=== PATIENT | female | born 1940 | race Caucasian/White ===

== ENCOUNTER 2017-04-07 14:54 | Observation (INO) | payer MEDICARE, OTHER ==
[2017-04-07] MEDS ORDERED: Sodium Chloride 0.9% 500 ML IV ONE (14:57)
--- NOTE | 2017-04-07 15:42 | EDM.PDOC ---
[id number] Complaint: AMBULANCE Time Seen by Provider: 04/07/17 14:55 Source of Information: Reports: Patient History Limitations: Reports: No Limitations - History of Present Illness INITIAL COMMENTS - FREE TEXT/NARRATIVE: History of present illness: []Patient was brought in by ambulance for frequent falls in each right shoulder pain. She states she's fallen 4 times in the last few days and complains of right shoulder pain unable to lift her arm. Patient saw her primary care physician who did a shoulder films yesterday and states it was not broken. Patient unable to tolerate pain and is unable to manage at home as she lives alone. Patient's daughter arrived and gave more history stating that patient's in November of this year she was admitted to the hospital in December with subsequent transfer to [facility] for respiratory distress where she was intubated she was then transferred to [facility] and stayed there until March 05. Since then she has been home doing fine until 6 days ago when she became very weak and tired and starting to fall. Patient's daughter states that she has arranged an admission to [facility] however they are not able to accept her until tomorrow. Review of systems: As per history of present illness and below otherwise all systems reviewed and negative. Past medical history: As per history of present illness and as reviewed below otherwise noncontributory. Surgical history: As per history of present illness and as reviewed below otherwise noncontributory. Social history: No reported history of drug or alcohol abuse. Family history: As per history of present illness and as reviewed below otherwise noncontributory. Physical exam: General: Well developed, well nourished in NAD HEENT: Atraumatic, normocephalic, pupils reactive, negative for conjunctival pallor or scleral icterus, mucous membranes dry, throat clear, neck supple, nontender, trachea midline. Lungs: Clear to auscultation, breath sounds equal bilaterally, chest nontender. Heart: S1S2, regular, negative for clicks, rubs, or JVD. Abdomen: Soft, nondistended, nontender. Negative for masses or hepatosplenomegaly. Negative for costovertebral tenderness. Pelvis: Stable nontender. Genitourinary: Ecchymotic area on her buttock and perineal area Rectal: Guaiac positive Extremities: Right shoulder and humerus with tenderness to palpation, she is unable to lift the right arm or move the shoulder in socket. Patient has a small abrasion on the left inner lower leg with surrounding erythema and serous drainage. Neuro: Awake, alert, oriented slow but clear speech. Cranial nerves II through XII unremarkable. Cerebellum unremarkable. Motor and sensory unremarkable throughout. Exam nonfocal. Skin: Multiple ecchymotic lesions throughout her skin on her upper extremities. Diagnostics: []Labs, x-ray Therapeutics: []IV hydration pain meds Impression: []Anemia, frequent falls Plan: []Admit list for further workup Definitive disposition and diagnosis as appropriate pending reevaluation and review of above. Right Shoulder Pain Score (Numeric/FACES): 8 - Related Data Allergies Allergy/AdvReac Type Severity Reaction Status Date / Time Penicillins Allergy Hives Verified 04/07/17 15:02 Home Meds: Home Meds Amiodarone [Cordarone] 200 mg PO BID 04/07/17 [History] Citalopram [Celexa] 10 mg PO DAILY 04/07/17 [History] Folic Acid 3 tab PO DAILY 04/07/17 [History] Furosemide 80 mg PO DAILY 04/07/17 [History] Methotrexate 6 tab PO WEEKLY 04/07/17 [History] Metoprolol Tartrate 1 tab PO BID 04/07/17 [History] Pantoprazole [ProTONIX] 40 mg PO BID 04/07/17 [History] Potassium Chloride [K-Tab ER] 1 tab PO BID 04/07/17 [History] Prednisone [IJD: predniSONE] 1 tab PO DAILY 04/07/17 [History] Prednisone [IJP: Prednisone] 1 tab PO DAILY 04/07/17 [History] Past Medical History HEENT History: Reports: None Cardiovascular History: Reports: Afib Other Cardiovascular History: Congestive heart failure Respiratory History: Reports: Pneumonia, Recurrent Gastrointestinal History: Reports: Hepatitis Genitourinary History: Reports: None [employer]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: Musculoskeletal History: Reports: RA Neurological History: Reports: None Psychiatric History: Reports: None Endocrine/Metabolic History: Reports: None Hematologic History: Reports: None Immunologic History: Reports: None Oncologic (Cancer) History: Reports: None Dermatologic History: Reports: None - Infectious Disease History Infectious Disease History: Reports: Chicken Pox, Measles, Mumps - Past Surgical History HEENT Surgical History: Reports: Other (See Below) Other HEENT Surgeries/Procedures: Cornea transplants Cardiovascular Surgical History: Reports: None Female Surgical History: Reports: Hysterectomy Social & Family History - Family History Family Medical History: Noncontributory Cardiac: Reports: Hypertension, Other (See Below) Other Cardiac Family History: Congestive heart failure Respiratory: Reports: None GI: Reports: None : Reports: UTI, Recurrent OBGYN: Reports: Musculoskeletal: Reports: Arthritis Neurological: Reports: None Psychiatric: Reports: Anxiety, Depression Endocrine/Metabolic: Reports: Diabetes, Type I Hematologic: Reports: None Immunologic: Reports: None Dermatologic: Reports: None Oncologic: Reports: None - Tobacco Use Smoking Status *Q: Never Smoker Years of Tobacco use: Used Tobacco, but Quit: Yes Month Tobacco Last Used: 2010 Second Hand Smoke Exposure: No - Caffeine Use Caffeine Use: Reports: Coffee Caffeine Use Comment: 3 cups/day - Alcohol Use Days Per Week of Alcohol Use: 0 - Recreational Drug Use Recreational Drug Use: No Review of Systems - Review of Systems Review Of Systems: See Below (See history of present illness) ED EXAM, GENERAL - Physical Exam Exam: See Below (See history of present illness) Course - Vital Signs Last Recorded V/S: Last Vital Signs Temp 36.3 C 04/07/17 16:10 Pulse 83 04/07/17 16:10 Resp 16 04/07/17 16:10 BP 135/64 04/07/17 16:23 Pulse Ox 99 04/07/17 16:10 - Orders/Labs/Meds Orders: Active Orders 24 hr Category Date Time Status EKG Documentation Completion [RC] STAT Care 04/07/17 14:57 Active Chest 1V Frontal [CR] Stat Exams 04/07/17 15:55 Taken Humerus Rt [CR] Stat Exams 04/07/17 15:55 Taken Saline Lock Insert [OM.PC] Stat Oth 04/07/17 14:57 Ordered Transfuse RBC [Transfuse Red Blood Cells] [COMM] Stat Oth 04/07/17 16:47 Ordered Labs: Laboratory Tests 04/07/17 04/07/17 04/07/17 Range/Units 16:00 16:00 16:00 WBC 2.74 L (4.0-11.0) K/uL RBC 2.69 L (4.30-5.90) M/uL Hgb 8.8 L (12.0-16.0) g/dL Hct 27.9 L (36.0-46.0) % MCV 103.7 H (80.0-98.0) fL MCH 32.7 H (27.0-32.0) pg MCHC 31.5 (31.0-37.0) g/dL RDW Std Deviation 69.1 H (28.0-62.0) fl RDW Coeff of Princess 18 H (11.0-15.0) % Plt Count 79 L (150-400) K/uL MPV 11.00 (7.40-12.00) fL Add Manual Diff YES Neutrophils % (Manual) 84 H (48.0-80.0) % Band Neutrophils % 9 % Lymphocytes % (Manual) 6 L (16.0-40.0) % Monocytes % (Manual) 1 (0.0-15.0) % Nucleated RBC % 0.0 /100WBC Absolute Seg Neuts 2.3 Band Neutrophils # 0.2 Lymphocytes # (Manual) 0.2 Monocytes # (Manual) 0 Nucleated RBCs # 0 K/uL Sodium 136 (136-146) mmol/L Potassium 3.6 (3.5-5.1) mmol/L Chloride 105 (98-110) mmol/L Carbon Dioxide 21 (21-31) mmol/L BUN 21 (6.0-23.0) mg/dL Creatinine 0.8 (0.6-1.5) mg/dL Est Cr Clr Drug Dosing 48.72 mL/min Estimated GFR (MDRD) > 60.0 ml/min Glucose 95 (60-110) mg/dL Calcium 7.0 L (8.8-10.8) mg/dL Total Bilirubin 1.3 (0.1-1.5) mg/dL AST 19 (5-40) IU/L ALT 21 (8-54) IU/L Alkaline Phosphatase 90 (40-150) Creatine Kinase (9-236) IU/L Troponin I 0.23 (0.0-0.29) NG/ML Total Protein 4.3 L (6.0-8.0) g/dL Albumin 2.6 L (3.4-4.8) g/dL Globulin 1.7 L (2.0-3.5) g/dL Albumin/Globulin Ratio 1.5 (1.3-2.8) Urine Color Urine Appearance Urine pH (5.0-8.0) Ur Specific Petty (1.001-1.035) Urine Protein (NEGATIVE) mg/dL Urine Glucose (UA) (NEGATIVE) mg/dL Urine Ketones (NEGATIVE) mg/dL Urine Occult Blood (NEGATIVE) Urine Nitrite (NEGATIVE) Urine Bilirubin (NEGATIVE) Urine Ictotest Urine Urobilinogen (<2.0) EU/dL Ur Leukocyte Esterase (NEGATIVE) Urine RBC (0-2/HPF) Urine WBC (0-5/HPF) Ur Epithelial Cells (NONE-FEW) Amorphous Sediment (NEGATIVE) Urine Bacteria (NEGATIVE) Urine Yeast 04/07/17 04/07/17 Range/Units 16:00 16:22 WBC (4.0-11.0) K/uL RBC (4.30-5.90) M/uL Hgb (12.0-16.0) g/dL Hct (36.0-46.0) % MCV (80.0-98.0) fL MCH (27.0-32.0) pg MCHC (31.0-37.0) g/dL RDW Std Deviation (28.0-62.0) fl RDW Coeff of Princess (11.0-15.0) % Plt Count (150-400) K/uL MPV (7.40-12.00) fL Add Manual Diff Neutrophils % (Manual) (48.0-80.0) % Band Neutrophils % % Lymphocytes % (Manual) (16.0-40.0) % Monocytes % (Manual) (0.0-15.0) % Nucleated RBC % /100WBC Absolute Seg Neuts Band Neutrophils # Lymphocytes # (Manual) Monocytes # (Manual) Nucleated RBCs # K/uL Sodium (136-146) mmol/L Potassium (3.5-5.1) mmol/L Chloride (98-110) mmol/L Carbon Dioxide (21-31) mmol/L BUN (6.0-23.0) mg/dL Creatinine (0.6-1.5) mg/dL Est Cr Clr Drug Dosing mL/min Estimated GFR (MDRD) ml/min Glucose (60-110) mg/dL Calcium (8.8-10.8) mg/dL Total Bilirubin (0.1-1.5) mg/dL AST (5-40) IU/L ALT (8-54) IU/L Alkaline Phosphatase (40-150) Creatine Kinase 48 (9-236) IU/L Troponin I (0.0-0.29) NG/ML Total Protein (6.0-8.0) g/dL Albumin (3.4-4.8) g/dL Globulin (2.0-3.5) g/dL Albumin/Globulin Ratio (1.3-2.8) Urine Color YELLOW Urine Appearance SLT CLOUDY Urine pH 5.5 (5.0-8.0) Ur Specific Petty 1.015 (1.001-1.035) Urine Protein 30 (NEGATIVE) mg/dL Urine Glucose (UA) NEGATIVE (NEGATIVE) mg/dL Urine Ketones NEGATIVE (NEGATIVE) mg/dL Urine Occult Blood NEGATIVE (NEGATIVE) Urine Nitrite NEGATIVE (NEGATIVE) Urine Bilirubin SMALL H (NEGATIVE) Urine Ictotest NEGATIVE Urine Urobilinogen 2.0 H (<2.0) EU/dL Ur Leukocyte Esterase NEGATIVE (NEGATIVE) Urine RBC 0-1 (0-2/HPF) Urine WBC 0-2 (0-5/HPF) Ur Epithelial Cells OCCASIONAL (NONE-FEW) Amorphous Sediment LIGHT (NEGATIVE) Urine Bacteria FEW (NEGATIVE) Urine Yeast RARE Meds: Medications Discontinued Medications Generic Name Dose Route Start Last Admin Trade Name Martinezq PRN Reason Stop Dose Admin Sodium Chloride 500 mls @ 999 mls/hr 04/07/17 14:57 04/07/17 15:36 Normal Saline IV 04/07/17 15:27 999 mls/hr .Bolus ONE Administration Morphine Sulfate 2 mg 04/07/17 15:50 04/07/17 15:57 Morphine IVPUSH 04/07/17 15:51 2 mg ONETIME ONE Administration Ondansetron HCl 4 mg 04/07/17 15:50 04/07/17 15:57 Zofran IVPUSH 04/07/17 15:51 4 mg ONETIME ONE Administration Departure - Departure Time of Disposition: 17:19 Disposition: Admitted As Inpatient 66 Condition: fair Clinical Impression: Frequent falls Anemia Qualifiers: Anemia type: unspecified type Qualified Code(s): D64.9 - Anemia, unspecified - Discharge Information Referrals: Raymond Pinon MD [Primary Care Provider] - Forms: ED Department Discharge - My Orders Last 24 Hours: My Active Orders 04/07/17 14:57 EKG Documentation Completion [RC] STAT Saline Lock Insert [OM.PC] Stat 04/07/17 15:55 Chest 1V Frontal [CR] Stat Humerus Rt [CR] Stat 04/07/17 16:47 Transfuse RBC [Transfuse Red Blood Cells] [COMM] Stat - Assessment/Plan Last 24 Hours: My Active Orders 04/07/17 14:57 EKG Documentation Completion [RC] STAT Saline Lock Insert [OM.PC] Stat 04/07/17 15:55 Chest 1V Frontal [CR] Stat Humerus Rt [CR] Stat 04/07/17 16:47 Transfuse RBC [Transfuse Red Blood Cells] [COMM] Stat
[2017-04-07] MEDS ORDERED: Morphine 2 MG/ML Syringe IVPUSH ONE (15:50)
[2017-04-07] MEDS ORDERED: Ondansetron 4 MG/2 ML SDV IVPUSH ONE (15:50)
[2017-04-07 16:42] LABS: CHLORIDE,CL 105 mmol/L (98-110); SODIUM,NA 136 mmol/L (136-146)
[2017-04-07] MEDS ORDERED: Sodium Chloride 0.9% 1,000 ML IV ONE (17:14)
[2017-04-07] MEDS ORDERED: Morphine 2 MG/ML Syringe IVPUSH PRN (18:21)
[2017-04-07] MEDS ORDERED: Acetaminophen 325 MG Tab PO PRN (18:21)
[2017-04-07] MEDS ORDERED: Polyethylene Glycol 3350 Powder 17 GM Packet PO PRN (18:21)
[2017-04-07] MEDS: Sodium Chloride 0.9% 1,000 ML IV SCH (18:30)
--- NOTE | 2017-04-07 18:44 | PCM.HP ---
H&P History of Present Illness - General Date of Service: 04/07/17 Admit Problem/Dx: Admission Diagnosis/Problem Admission Diagnosis/Problem Fall Source of Information: Patient, Family, Old Records History Limitations: Reports: No Limitations - History of Present Illness Initial Comments - Free Text/Narative: Has been increasingly weak and unsteady on her feet. Dizzy at times. Fell on Wednesday without injury. Today, fell in kitchen onto her bottom. Pain in shoulders and coccyx. Also hit head on the way down (bump behind left ear) but that doesn't hurt. No LOC, syncope, CP, SOB, palpitations. Has been increasingly frail past month or so and is on waiting list to go to [place] for a SNF/rehab stay. Denies any bleeding anywhere. Lots of bruising but that's not new. No MCLEOD, focal neuro sxs, vision changes (over baseline). Also has been having epigastric fullness and early satiety. Onset of Symptoms: Reports: Gradual Right Shoulder Pain Score (Numeric/FACES): 8 - Related Data Allergies/Adverse Reactions: Allergies Allergy/AdvReac Type Severity Reaction Status Date / Time Penicillins Allergy Hives Verified 04/07/17 15:02 Home Medications: Home Meds Amiodarone [Cordarone] 200 mg PO BID 04/07/17 [History] Citalopram [Celexa] 10 mg PO DAILY 04/07/17 [History] Pantoprazole [ProTONIX] 40 mg PO BID 04/07/17 [History] Potassium Chloride [K-Tab ER] 1 tab PO BID 04/07/17 [History] RX: Folic Acid 3 tab PO DAILY 04/07/17 [History] RX: Furosemide 80 mg PO DAILY 04/07/17 [History] RX: Methotrexate 6 tab PO WEEKLY 04/07/17 [History] RX: Metoprolol Tartrate 1 tab PO BID 04/07/17 [History] RX: Prednisone [IJD: predniSONE] 1 tab PO DAILY 04/07/17 [History] RX: Prednisone [IJP: Prednisone] 1 tab PO DAILY 04/07/17 [History] Past Medical History HEENT History: Reports: Cataract, Impaired Vision (lots of eye surgeries), Other (See Below) Cardiovascular History: Reports: Afib (paroxysmal) Other Cardiovascular History: Congestive heart failure. 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: Musculoskeletal History: Reports: Connective Tissue Disease, RA, Other (See Below) (Raynaud's, Sjogren's) Neurological History: Reports: None, Neuropathy, Diabetic Psychiatric History: Reports: None Endocrine/Metabolic History: Reports: None Hematologic History: Reports: None Immunologic History: Reports: None Oncologic (Cancer) History: Reports: None Dermatologic History: Reports: None - Infectious Disease History Infectious Disease History: Reports: Chicken Pox, Measles, Mumps - Past Surgical History HEENT Surgical History: Reports: Other (See Below) Other HEENT Surgeries/Procedures: Cornea transplants Cardiovascular Surgical History: Reports: None Female Surgical History: Reports: Hysterectomy Social & Family History - Family History Family Medical History: Noncontributory Cardiac: Reports: Hypertension, Other (See Below) Other Cardiac Family History: Congestive heart failure Respiratory: Reports: None GI: Reports: None : Reports: UTI, Recurrent OBGYN: Reports: Musculoskeletal: Reports: Arthritis Neurological: Reports: None Psychiatric: Reports: Anxiety, Depression Endocrine/Metabolic: Reports: Diabetes, Type I Hematologic: Reports: None Immunologic: Reports: None Dermatologic: Reports: None Oncologic: Reports: None - Tobacco Use Smoking Status *Q: Never Smoker Years of Tobacco use: 25 Used Tobacco, but Quit: Yes Month Tobacco Last Used: 2010 Second Hand Smoke Exposure: No - Caffeine Use Caffeine Use: Reports: Coffee Caffeine Use Comment: 3 cups/day - Alcohol Use Alcohol Use History: No Days Per Week of Alcohol Use: 0 - Recreational Drug Use Recreational Drug Use: No - Living Situation & Occupation Living situation: Reports: , Alone H&P Review of Systems - Review of Systems: Review Of Systems: ROS reveals no pertinent complaints other than HPI. HEENT: Reports: Other (poor vision) Exam - Exam Exam: See Below - Vital Signs Vital Signs: Last Vital Signs Temp 36.8 C 04/07/17 17:45 Pulse 87 04/07/17 17:31 Resp 20 04/07/17 17:45 BP 136/64 04/07/17 17:45 Pulse Ox 93 L 04/07/17 17:45 Weight: 64.41 kg - Exam General: Alert, Oriented, Cooperative HEENT: Other (irreg cornea and iris from surgeries. very dry) Neck: Supple, Trachea Midline, +2 Carotid Pulse wo Bruit, Full Range of Motion, Other (nontender) Lungs: Clear to Auscultation, Normal Respiratory Effort Cardiovascular: Regular Rate, Regular Rhythm, Normal S1, Normal S2 Abdomen: Normal Bowel Sounds, Soft, Pelvis Stable Back Exam: Normal Inspection, Full Range of Motion Extremities: Cyanosis, Edema, Other (venous stasis changes; ) Skin: Ecchymosis, Wound, Other (atrophic c/w prednisone ) Neuro Extensive - Mental Status: Alert, Oriented x3, Normal Mood/Affect, Normal Cognition Physical Exam Comments:: RA changes Cyanotic digits from Raynaud's - Patient Data Result Diagrams: 04/07/17 16:00 04/07/17 16:00 EKG INTERPRETATION Rhythm: NSR (LVH changes) *Q Meaningful Use (ADM) - VTE *Q VTE Criteria *Q: - Stroke *Q Stroke Criteria *Q: - AMI *Q AMI Criteria *Q: Problem List Initiated/Reviewed/Updated: Yes Orders Last 24hrs: Active Orders 24 hr Category Date Time Status Patient Status [ADT] Routine ADT 04/07/17 18:29 Ordered Intake and Output [RC] QSHIFT Care 04/07/17 18:30 Ordered Oxygen Therapy [RC] PRN Care 04/07/17 18:29 Ordered Up With Assistance [RC] ASDIRECTED Care 04/07/17 18:21 Ordered VTE/DVT Education [RC] PER UNIT ROUTINE Care 04/07/17 18:29 Ordered Vital Signs [RC] Q4H Care 04/07/17 18:29 Ordered Wound Care [RC] DAILY Care 04/07/17 18:37 Ordered OT Evaluation and Treatment [CONS] Routine Cons 04/07/17 18:21 Ordered PT Evaluation and Treatment [CONS] Routine Cons 04/07/17 18:21 Ordered Regular Diet [DIET] Diet 04/07/17 Dinner Ordered Pelvis 1V or 2V [CR] Routine Exams 04/07/17 18:16 Ordered UGI w KUB [CR] Routine Exams 04/08/17 09:00 Ordered CBC WITH AUTO DIFF [HEME] AM Lab 04/08/17 05:11 Ordered COMPREHENSIVE METABOLIC PN,CMP [CHEM] AM Lab 04/08/17 05:11 Ordered Guaiac [OCCULT BLOOD DIAGNOSTIC] [OP] Routine Lab 04/07/17 18:34 Uncollected MAGNESIUM [CHEM] AM Lab 04/08/17 05:11 Ordered PHOSPHORUS [CHEM] AM Lab 04/08/17 05:11 Ordered Acetaminophen [Tylenol] Med 04/07/17 18:21 Ordered 650 mg PO Q4H PRN Acetaminophen/HYDROcodone [[place] 325-5 MG] Med 04/07/17 18:21 Ordered 1 tab PO Q4H PRN Amiodarone [Cordarone] Med 04/07/17 21:00 Ordered 200 mg PO BID Citalopram Med 04/08/17 09:00 Ordered 10 mg PO DAILY Folic Acid Med 04/08/17 09:00 Ordered 3 tab PO DAILY Methotrexate Med 04/07/17 18:45 Ordered 6 tab PO WEEKLY Metoprolol Tartrate [Lopressor] Med 04/08/17 09:00 Ordered 1 tab PO BID Morphine Med 04/07/17 18:21 Ordered 2 mg IVPUSH Q2H PRN Pantoprazole [ProTONIX] Med 04/08/17 09:00 Ordered 40 mg PO BID Polyethylene Glycol 3350 [MiraLAX] Med 04/07/17 18:21 Ordered 17 gm PO DAILY PRN Sodium Chloride 0.9% [Normal Saline] 1,000 ml Med 04/07/17 18:30 Ordered IV ASDIRECTED predniSONE Med 04/08/17 09:00 Ordered 1 tab PO DAILY Resuscitation Status Routine Resus Stat 04/07/17 18:21 Ordered Medication Orders Acetaminophen (Tylenol) 650 mg PO Q4H PRN PRN Reason: Pain (Mild 1-3)/fever Hydrocodone Bitart/Acetaminophen ([place] 325-5 Mg) 1 tab PO Q4H PRN PRN Reason: Pain (moderate 4-6) Amiodarone HCl (Cordarone) 200 mg PO BID BEST Folic Acid (Folic Acid) mg PO DAILY BEST Sodium Chloride (Normal Saline) 1,000 mls @ 75 mls/hr IV ASDIRECTED BEST Methotrexate (Methotrexate) mg PO WEEKLY BEST Metoprolol Tartrate (Lopressor) mg PO BID BEST Morphine Sulfate (Morphine) 2 mg IVPUSH Q2H PRN PRN Reason: Pain (severe 7-10) Stop: 04/08/17 18:31 Non-Formulary Medication (Citalopram) 10 mg PO DAILY BEST Pantoprazole Sodium (Protonix) 40 mg PO BID BEST Polyethylene Glycol (Miralax) 17 gm PO DAILY PRN PRN Reason: Constipation Prednisone (Prednisone) mg PO DAILY BEST Assessment/Plan Comment:: Fall: multifactoria--anemia, debility, poor vision, RA, frailty Coccyx pain--check pelvic xray Severe anemia--hgb was 16 in Dec. Heme + stool on APARNA by ER MD so prob from that. B12 level ok but iron stores low. Heme + stool on prednisone Early satiety recently RA/Raynaud's/Sjogrens Chronic steroid use Skin tears Volume depletion lymphedema/venous stasis changes Hx of SDH (no evid of that today but observe closely) Hx of neck injury after fall--see above. PAF--a really high dose of Amio. Decrease? In NSR right now. PLAN: 1 unit PRBC's ordered by ED MD. Tend to agree, though she's over 8, she's also dry so it's prob hemoconcentrated. Also, she's very symptomatic. RBA d/w pt and her dtr and they agree to prbc's PT/OT Pelvic xray IVF Hold lasix and kcl for now B SCD's if possible reconcile home meds SCD's Full Code To Lorenzo when w/u completed.
[2017-04-07] MEDS ORDERED: Methotrexate 2.5 MG Tab PO SCH (19:00)
[2017-04-07] MEDS: Amiodarone 200 MG Tab PO SCH (20:58)
[2017-04-07] MEDS: Dexamethasone 0.1% Ophth Soln 5 ML Bottle EYEBOTH SCH (21:01)
[2017-04-07] MEDS: SYSTANE EYE EYEBOTH SCH (21:57)
[2017-04-07] MEDS: SYSTANE EYEBOTH SCH (22:11)
[2017-04-08 05:11] LABS: CHLORIDE,CL 108 mmol/L (98-110); SODIUM,NA 135 mmol/L (136-146)
[2017-04-08] MEDS: Pantoprazole 40 MG Tab.CR PO SCH ×2 (07:56→16:44)
[2017-04-08] MEDS ORDERED: predniSONE 10 MG Tab PO SCH (09:00)
[2017-04-08] MEDS: Moxifloxacin 0.5% Ophth Soln 3 ML Bottle EYELF SCH (10:00)
[2017-04-08] MEDS: SYSTANE EYEBOTH SCH ×2 (10:00→20:24)
[2017-04-08] MEDS: Dexamethasone 0.1% Ophth Soln 5 ML Bottle EYEBOTH SCH ×2 (10:00→20:23)
[2017-04-08] MEDS: SYSTANE EYE EYEBOTH SCH ×2 (10:00→20:24)
--- NOTE | 2017-04-08 10:37 | CR ---
EXAM DATE: 04/07/17 PATIENT'S AGE: 77 Patient: CASSI CARPENTER Facility: [place], [place] Site . Site : 1940 Study: XRay Chest [id number]/7/[id number] 4:55:08 PM Ordering Physician: [place] Final Report: INDICATION: weakness, recent fall TECHNIQUE: Chest radiograph 1 view COMPARISON: 12/18/2016 FINDINGS: Cardiovascular and mediastinum: Moderate cardiomegaly is present. The mediastinum is normal in appearance. The patient is status post median sternotomy and coronary artery bypass grafting (CABG). Lungs and pleural spaces: Mild pulmonary vascular congestion is noted bilaterally. No sign of pleural effusion seen. No pneumothorax is identified. Bones and soft tissues: No significant findings. IMPRESSION: 1. Mild pulmonary vascular congestion is noted bilaterally. 2. Moderate cardiomegaly noted. Dictated by Sergio Lee MD @ 04/07/2017 4:56:20 PM Dictated by: Sergio Lee MD @ 04/07/2017 16:57:13 (Electronic Signature) Report Signed by Proxy. [facility]CT[facility] HOSPITALSimón
--- NOTE | 2017-04-08 10:38 | CR ---
EXAM DATE: 04/07/17 PATIENT'S AGE: 77 Patient: CASSI CARPENTER Facility: [place], [place] Site . Site : 1940 Study: XRay Extremity humerus [id number]/7/2017 4:55:52 PM Ordering Physician: [place] Final Report: INDICATION: Arm pain from a fall TECHNIQUE: Humerus radiographs 2 views right on 3 films COMPARISON: None FINDINGS: Bones: Alignment is normal. No acute fractures or aggressive osseous lesions seen. Joint spaces: The elbow joint is unremarkable appearance. Severe osteoarthritis of the glenohumeral joint is noted. Soft tissues: Unremarkable. No radiopaque foreign bodies seen. IMPRESSION: 1. No acute osseous injuries are identified. Dictated by Sergio Lee MD @ 04/07/2017 5:00:59 PM Dictated by: Sergio Lee MD @ 04/07/2017 17:01:03 (Electronic Signature) Report Signed by Proxy. [facility]
[2017-04-08] MEDS: Acetaminophen/HYDROcodone 325-5 MG Tab PO PRN ×2 (10:40→16:43)
[2017-04-08] MEDS: Folic Acid 1 MG Tab PO SCH (11:55)
[2017-04-08] MEDS: Citalopram 20 MG Tab PO SCH (11:55)
[2017-04-08] MEDS: Sodium Chloride 0.9% 1,000 ML IV SCH (11:55)
[2017-04-08] MEDS: predniSONE 20 MG Tab PO SCH (11:55)
[2017-04-08] MEDS: Metoprolol Tartrate 50 MG Tab PO SCH ×2 (11:57→20:22)
[2017-04-08] MEDS: Amiodarone 200 MG Tab PO SCH ×2 (11:57→20:23)
--- NOTE | 2017-04-08 13:33 | PCM.PN ---
- General Info Date of Service: 04/08/17 Admission Dx/Problem (Free Text): Admission Diagnosis/Problem Admission Diagnosis/Problem Fall Subjective Update: Feeling better this am. Stronger but still weak with PT. Still having right shoulder and coccyx pain. Eating and sleeping well. No chest pain, palpitations, sob, abd pain, diarrhea, n/v Functional Status: Reports: pain controlled, tolerating diet, ambulating - Review of Systems General: Reports: Weakness, Fatigue. Denies: Fever HEENT: Denies: dysphasia, sore throat Pulmonary: Denies: shortness of breath, pleuritic chest pain, wheezing Cardiovascular: Reports: Edema. Denies: Chest Pain, Palpitations Gastrointestinal: Denies: Abdominal pain, Constipation Genitourinary: Denies: dysuria, hematuria Musculoskeletal: Reports: leg pain. Denies: neck pain Skin: Denies: cyanosis Neurological: Denies: Confusion, Dizziness, Headache Psychiatric: Denies: confusion, depression - Patient Data Vitals - most recent: Last Vital Signs Temp 36.0 C 04/08/17 11:51 Pulse 81 04/08/17 11:57 Resp 18 04/08/17 11:51 BP 124/54 L 04/08/17 11:57 Pulse Ox 91 L 04/08/17 11:51 Weight - most recent: 64.41 kg I&O - last 24 hours: Intake & Output 04/07/17 04/08/17 04/08/17 22:59 06:59 14:59 Intake Total 13 856 Output Total 400 Balance 13 456 Lab Results last 24 hrs: Laboratory Results - last 24 hr 04/07/17 04/08/17 04/08/17 Range/Units 19:46 04:41 04:41 WBC 2.52 L (4.0-11.0) K/uL RBC 2.89 L (4.30-5.90) M/uL Hgb 9.5 L (12.0-16.0) g/dL Hct 29.6 L (36.0-46.0) % MCV 102.4 H (80.0-98.0) fL MCH 32.9 H (27.0-32.0) pg MCHC 32.1 (31.0-37.0) g/dL RDW Std Deviation 69.7 H (28.0-62.0) fl RDW Coeff of Princess 19 H (11.0-15.0) % Plt Count 76 L (150-400) K/uL MPV 11.60 (7.40-12.00) fL Add Manual Diff YES Neutrophils % (Manual) 87 H (48.0-80.0) % Band Neutrophils % 3 % Lymphocytes % (Manual) 8 L (16.0-40.0) % Eosinophils % (Manual) 2 (0.0-7.0) % Nucleated RBC % 1.3 /100WBC Absolute Seg Neuts 2.2 Band Neutrophils # 0.1 Lymphocytes # (Manual) 0.2 Eosinophils # (Manual) 0.1 Nucleated RBCs # 0 K/uL Sodium 135 L (136-146) mmol/L Potassium 3.6 (3.5-5.1) mmol/L Chloride 108 (98-110) mmol/L Carbon Dioxide 18 L (21-31) mmol/L BUN 19 (6.0-23.0) mg/dL Creatinine 0.7 (0.6-1.5) mg/dL Est Cr Clr Drug Dosing 55.66 mL/min Estimated GFR (MDRD) > 60.0 ml/min Glucose 72 (60-110) mg/dL Calcium 7.1 L (8.8-10.8) mg/dL Phosphorus 2.4 (2.4-4.7) mg/dL Magnesium 1.0 L (1.5-2.3) mEq/L Total Bilirubin 2.3 H (0.1-1.5) mg/dL AST 17 (5-40) IU/L ALT 19 (8-54) IU/L Alkaline Phosphatase 80 (40-150) Total Protein 4.5 L (6.0-8.0) g/dL Albumin 2.3 L (3.4-4.8) g/dL Globulin 2.2 (2.0-3.5) g/dL Albumin/Globulin Ratio 1.1 L (1.3-2.8) Blood Type A POSITIVE Antibody Screen NEGATIVE Crossmatch See Detail Med Orders - Current: Current Medications Acetaminophen (Tylenol) 650 mg PO Q4H PRN PRN Reason: Pain (Mild 1-3)/fever Hydrocodone Bitart/Acetaminophen ([place] 325-5 Mg) 1 tab PO Q4H PRN PRN Reason: Pain (moderate 4-6) Last Admin: 04/08/17 10:40 Dose: 1 tab Amiodarone HCl (Cordarone) 200 mg PO BID [facility] Last Admin: 04/08/17 11:57 Dose: 200 mg Citalopram Hydrobromide (Celexa) 10 mg PO DAILY [facility] Last Admin: 04/08/17 11:55 Dose: 10 mg Dexamethasone (Decadron 0.1% Ophth Soln) 0 ml EYEBOTH BID [facility] Last Admin: 04/08/17 10:00 Dose: 1 drop Folic Acid (Folic Acid) 3 mg PO DAILY [facility] Last Admin: 04/08/17 11:55 Dose: 3 mg Sodium Chloride (Normal Saline) 1,000 mls @ 75 mls/hr IV ASDIRECTED [facility] Last Admin: 04/08/17 11:55 Dose: 75 mls/hr Methotrexate (Methotrexate) 15 mg PO We@0900 [facility] Last Admin: 04/07/17 20:57 Dose: 15 mg Metoprolol Tartrate (Lopressor) 50 mg PO BID [facility] Last Admin: 04/08/17 11:57 Dose: 50 mg Morphine Sulfate (Morphine) 2 mg IVPUSH Q2H PRN PRN Reason: Pain (severe 7-10) Stop: 04/08/17 18:31 Moxifloxacin HCl (Vigamox 0.5% Ophth Soln) 0 ml EYELF DAILY [facility] Last Admin: 04/08/17 10:00 Dose: 1 drop Pantoprazole Sodium (Protonix) 40 mg PO BIDAC [facility] Last Admin: 04/08/17 07:56 Dose: Not Given Patient's Own MedicationSystane Ophth Gel 0 each EYEBOTH BID [facility] Last Admin: 04/08/17 10:00 Dose: 1 each Patient's Own MedicationSystane Eye Drops 0 each EYEBOTH BID [facility] Last Admin: 04/08/17 10:00 Dose: 1 each Polyethylene Glycol (Miralax) 17 gm PO DAILY PRN PRN Reason: Constipation Prednisone (Prednisone) 10 mg PO DAILY [facility] Prednisone (Prednisone) 20 mg PO DAILY [facility] Stop: 04/09/17 09:01 Last Admin: 04/08/17 11:55 Dose: 20 mg Discontinued Medications Sodium Chloride (Normal Saline) 500 mls @ 999 mls/hr IV .Bolus ONE Stop: 04/07/17 15:27 Last Admin: 04/07/17 15:36 Dose: 999 mls/hr Sodium Chloride (Normal Saline) 1,000 mls @ 999 mls/hr IV .Bolus ONE Stop: 04/07/17 18:14 Last Admin: 04/07/17 17:23 Dose: 999 mls/hr Morphine Sulfate (Morphine) 2 mg IVPUSH ONETIME ONE Stop: 04/07/17 15:51 Last Admin: 04/07/17 15:57 Dose: 2 mg Ondansetron HCl (Zofran) 4 mg IVPUSH ONETIME ONE Stop: 04/07/17 15:51 Last Admin: 04/07/17 15:57 Dose: 4 mg Prednisone (Prednisone) 10 mg PO DAILY [facility] - Exam Quality Assessment: DVT prophylaxis General: alert, oriented, cooperative, no acute distress HEENT: Pupils equal, Pupils reactive, EOMI, Mucous membr. moist/pink Neck: supple, trachea midline, no JVD Lungs: Clear to auscultation, Normal respiratory effort Cardiovascular: Regular Rate, Regular Rhythm, Murmurs Abdomen: bowel sounds present, soft, no tenderness, no distension Back Exam: Normal Inspection, Full Range of Motion Extremities: edema (+2 bilateral to shins ) Peripheral Pulses: 2+: Radial (L), Radial (R), Posterior Tibial (L), Posterior Tibial (R), Dorsalis Pedis (L), Dorsalis Pedis (R) Skin: warm, dry, intact Neurological: no new focal deficit Psy/Mental Status: alert, normal affect, normal mood - Problem List Review Problem List Initiated/Reviewed/Updated: Yes - Plan Plan:: 77 yo female admitted 04/08/17 for fall/weakness with PMH of RA/Raynaud's/ Sjorgrens and PAF. Fall/weakness: improved with 1 unit prbc's in ED. Heme + stool getting UGI w/ KUB pending. Has history of Peptic ulcer's. No active bleeding now. Monitor and will need follow-up with surgery after d/c. Coccyx pain: Pelvic x-ray pending cont. Vol. 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 PAF: Cont. NSR now. Consider adjusting high dose amiodarone. Will monitor for know. VTE: SCD's Dispo: Lorenzo jackson if stable hgb
--- NOTE | 2017-04-08 16:45 | CR ---
EXAMINATION: Single contrast upper GI HISTORY: Early satiety COMPARISON: None TECHNIQUE: A limited single contrast upper GI was performed. The patient was in a semiupright positi on and was unable to roll secondary to pain. FINDINGS: The patient swallowed barium without difficulty. No filling defect or ulceration. Mild ter tiary waves are noted. There is a small hiatal hernia. The stomach was mildly filled and no definite filling defect or ulceration identified. The rugal fol d pattern appears grossly normal. There is a tiny duodenal diverticulum. The duodenal bulb and sweep are otherwise unremarkable. IMPRESSION: 1. Tiny hiatal hernia. 2. Tiny duodenal diverticulum. 3. Presbyesophagus. 4. Otherwise limited exam due to patient mobility.
--- NOTE | 2017-04-08 16:58 | CR ---
EXAMINATION: Pelvis HISTORY: Fall COMPARISON: 09/05/2013 TECHNIQUE: AP views FINDINGS: There is possibly an inferior pubic rami fracture noted on the left. Left total hip hardwa re is noted, stable in position and alignment. The SI joints are symmetric. The osseous structures a ppear mildly osteopenic. Degenerative changes noted within the lumbar spine. IMPRESSION: 1. Possible nondisplaced left inferior pubic rami fracture.
--- NOTE | 2017-04-08 18:44 | PCM.SN ---
- Free Text/Narrative Note: UGI with KUB performed showing a small tiny hiatal hernia, tiny duodenal diverticulum, presbyesophagus, duodenal bulb and sweep otherwise unremarkable. Patient doing well no complaints.
[2017-04-09] MEDS: Sodium Chloride 0.9% 1,000 ML IV SCH (00:46)
[2017-04-09] MEDS: Pantoprazole 40 MG Tab.CR PO SCH (07:12)
[2017-04-09] MEDS: Acetaminophen/HYDROcodone 325-5 MG Tab PO PRN ×2 (07:49→12:00)
[2017-04-09] MEDS ORDERED: Magnesium Sulfate/Water 4 GM in Premix Bag 1 BAG IV ONE (07:50)
[2017-04-09 08:44] LABS: CHLORIDE,CL 107 mmol/L (98-110); SODIUM,NA 137 mmol/L (136-146)
[2017-04-09] MEDS: Amiodarone 200 MG Tab PO SCH (10:03)
[2017-04-09] MEDS: Citalopram 20 MG Tab PO SCH (10:03)
[2017-04-09] MEDS: Dexamethasone 0.1% Ophth Soln 5 ML Bottle EYEBOTH SCH (10:04)
[2017-04-09] MEDS: Folic Acid 1 MG Tab PO SCH (10:04)
[2017-04-09] MEDS: Metoprolol Tartrate 50 MG Tab PO SCH (10:04)
[2017-04-09] MEDS: SYSTANE EYEBOTH SCH (10:05)
[2017-04-09] MEDS: predniSONE 20 MG Tab PO SCH (10:05)
[2017-04-09] MEDS: SYSTANE EYE EYEBOTH SCH (10:05)
[2017-04-09] MEDS: Moxifloxacin 0.5% Ophth Soln 3 ML Bottle EYELF SCH (10:05)
[2017-04-09] MEDS ORDERED: Furosemide 40 MG/4 ML VIAL IVPUSH ONE (11:55)
[2017-04-09 12:17] VITALS: BP 114/56
[2017-04-10] MEDS ORDERED: predniSONE 10 MG Tab PO SCH (09:00)
--- NOTE | 2017-04-10 15:24 | PCM.DCSUM1 ---
Discharge Summary - Hospital Course HPI Initial Comments: 77-year-old female admitted 04/08/17 for fall/weakness with PMH of RA/Bernards, Sjogren's and PAF. Brief History: Patient was brought to the ED on 04/08/17 by ambulance for frequent falls and right shoulder pain. She had fallen 4 times in the previous few days and had complaints of right shoulder pain and the inability to raise arm. She had seen her primary care physician who had done films the day before amd reported that there were no fractures. Patient was unable to tolerate pain and unable to manage at home as she lives alone. Patient's in November of this year. In December patient had been admitted to the hospital for respiratory distress and subsequently intubated and transferred to [place]. After that stay she was transferred to [facility] stayed there until March 05. Patient's daughter has been concerned of her weakness and inability to take care of herself at home alone and had been ranging admission to [facility]. - Discharge Data Discharge Date: 04/09/17 Discharge Disposition: DC/Tfer to [facility] 03 Condition: Good - Patient Summary/Data Consults: Consultations 04/07/17 18:21 OT Evaluation and Treatment [CONS] Routine PT Evaluation and Treatment [CONS] Routine Hospital Course: In the emergency department patient was normotensive BP 136/63 heart rate 72 oxygen saturation 90% and afebrile. She was anemic with hemoglobin of 8.8 and was transfused one unit PRBCs. CMP was unremarkable other than hypocalcemia at 7.0. UA unremarkable. Chest x-ray revealed mild pulmonary vascular congestion and cardiomegaly. Humerus x-ray revealed no acute osseous abnormalities. Pelvis x-ray revealed a "possibly" nondisplaced left inferior pubic rami fracture. Patient was admitted for frequent falls and weakness. Patient was slightly Hemoccult positive but had received a APARNA in emergency department. She has a history of peptic ulcer disease thus was placed on PPI. Hemoglobin was stabilized without further intervention and it was believed that patient mostly likely has a chronic intermittent upper GI bleed. Patient was scheduled for surgery followup after discharge for this. During her stay a UGI with KUB was performed showing only a small tiny hiatal hernia, tiny lung diverticulum, and presbyesophagus. Otherwise patient did well during her stay. She was extremely weak and PT/OT worked with her on this. She'll require daily PT for strengthening. Her recent falls were most likely multifactorially due to anemia, debility, poor vision, RA , and generalized frailty. - Patient Instructions Diet: Regular Diet as Tolerated Activity: Rest and Relax Today Driving: Do Not Drive Showering/Bathing: May Shower Wound/Incision Care: Change Dressing Daily Notify Provider of: Fever, Increased Pain, Swelling and Redness, Drainage, Nausea and/or Vomiting Other/Special Instructions: Daily PT/OT for strengthening and balance. Regular diet. Wound care change dressings daily - Discharge Plan Home Medications: Home Meds Amiodarone [Cordarone] 200 mg PO BID 04/07/17 [History] Citalopram [Celexa] 10 mg PO BEDTIME 04/07/17 [History] Dexamethasone Sod Phosphate [Dexamethasone Sodium Phosphate] 1 drop EYEBOTH BID 04/07/17 [History] Folic Acid 3 tab PO DAILY 04/07/17 [History] Furosemide 80 mg PO DAILY 04/07/17 [History] Hypromellose [Systane Gel] 1 applic EYEBOTH BID 04/07/17 [History] Methotrexate 6 tab PO WEEKLY 04/07/17 [History] Metoprolol Tartrate 1 tab PO BID 04/07/17 [History] Moxifloxacin [Vigamox 0.5% Ophth Soln] 1 drop EYELF DAILY 04/07/17 [History] Pantoprazole [ProTONIX] 40 mg PO BIDAC 04/07/17 [History] Potassium Chloride [K-Tab ER] 1 tab PO BID 04/07/17 [History] Prednisone [IJD: predniSONE] 1 tab PO DAILY 04/07/17 [History] Prednisone [IJP: Prednisone] 1 tab PO DAILY 04/07/17 [History] Propylene Glycol/Peg 400 [Systane 0.3-0.4% Eye Drops] 1 drop EYEBOTH BID [History] Patient Handouts: Anemia, Nonspecific Referrals: Rayna Brewer MD [Physician] - 04/20/17 3:00 pm Raymond Pinon MD [Primary Care Provider] - 04/16/17 12:30 pm - Discharge Summary/Plan Comment DC Time >30 min.: Yes Discharge Summary/Plan Comment: 77-year-old female admitted 04/08/17 for fall/weakness with PMH of RA/Bernards, Sjogren's and PAF. Patient was brought to the ED on 04/08/17 by ambulance for frequent falls and right shoulder pain. She had fallen 4 times in the previous few days and had complaints of right shoulder pain and the inability to raise arm. She had seen her primary care physician who had done films the day before amd reported that there were no fractures. Patient was unable to tolerate pain and unable to manage at home as she lives alone. Patient's in November of this year. In December patient had been admitted to the hospital for respiratory distress and subsequently intubated and transferred to [place]. After that stay she was transferred to [facility] stayed there until March 05. Patient's daughter has been concerned of her weakness and inability to take care of herself at home alone and had been ranging admission to [facility]. In the emergency department patient was normotensive BP 136/63 heart rate 72 oxygen saturation 90% and afebrile. She was anemic with hemoglobin of 8.8 and was transfused one unit PRBCs. CMP was unremarkable other than hypocalcemia at 7.0. UA unremarkable. Chest x-ray revealed mild pulmonary vascular congestion and cardiomegaly. Humerus x-ray revealed no acute osseous abnormalities. Pelvis x-ray revealed a "possibly" nondisplaced left inferior pubic rami fracture. Patient was admitted for frequent falls and weakness. Patient was slightly Hemoccult positive but had received a APARNA in emergency department. She has a history of peptic ulcer disease thus was placed on PPI. Hemoglobin was stabilized without further intervention and it was believed that patient mostly likely has a chronic intermittent upper GI bleed. Patient was scheduled for surgery followup after discharge for this. During her stay a UGI with KUB was performed showing only a small tiny hiatal hernia, tiny lung diverticulum, and presbyesophagus. Otherwise patient did well during her stay. She was extremely weak and PT/OT worked with her on this. She'll require daily PT for strengthening. Her recent falls were most likely multifactorially due to anemia, debility, poor vision, RA , and generalized frailty. Patient was discharged to [facility] on 04/09/17 for rehabilitation and most likely permanent placement. - General Info Date of Service: 04/09/17 Admission Dx/Problem (Free Text: Admission Diagnosis/Problem Admission Diagnosis/Problem Fall Subjective Update: Feels she is improving but still very weak. Shoulder and coccyx pain. No sob, chest pain, palpitations, abd pain, diarrhea, n/v, dysuria, calf pain. Pain controlled. Slept "okay". Functional Status: Reports: pain controlled, tolerating diet, ambulating - Review of Systems General: Reports: Weakness, Fatigue. Denies: Fever, Night Sweats HEENT: Denies: headaches, sinus congestion, sore throat Pulmonary: Denies: shortness of breath, pleuritic chest pain, cough, hemoptysis Cardiovascular: Reports: Edema. Denies: Chest Pain, Palpitations Gastrointestinal: Denies: Abdominal pain, Diarrhea, Nausea, Vomiting Genitourinary: Denies: dysuria Musculoskeletal: Denies: neck pain, leg pain Skin: Denies: cyanosis Neurological: Denies: Confusion, Dizziness, Headache Psychiatric: Denies: confusion - Patient Data Vitals - Most Recent: Last Vital Signs Temp 37.0 C 04/09/17 12:16 Pulse 70 04/09/17 12:16 Resp 18 04/09/17 12:16 BP 114/56 L 04/09/17 12:16 Pulse Ox 95 04/09/17 12:16 Weight - Most Recent: 67 kg Med Orders - Current: Current Medications Discontinued Medications Acetaminophen (Tylenol) 650 mg PO Q4H PRN PRN Reason: Pain (Mild 1-3)/fever Hydrocodone Bitart/Acetaminophen ([place] 325-5 Mg) 1 tab PO Q4H PRN PRN Reason: Pain (moderate 4-6) Last Admin: 04/09/17 12:00 Dose: 1 tab Amiodarone HCl (Cordarone) 200 mg PO BID [facility] Last Admin: 04/09/17 10:03 Dose: 200 mg Citalopram Hydrobromide (Celexa) 10 mg PO DAILY [facility] Last Admin: 04/09/17 10:03 Dose: 10 mg Dexamethasone (Decadron 0.1% Ophth Soln) 0 ml EYEBOTH BID [facility] Last Admin: 04/09/17 10:04 Dose: 1 drop Folic Acid (Folic Acid) 3 mg PO DAILY [facility] Last Admin: 04/09/17 10:04 Dose: 3 mg Furosemide (Lasix) 40 mg IVPUSH NOW ONE Stop: 04/09/17 11:56 Last Admin: 04/09/17 12:10 Dose: 40 mg Sodium Chloride (Normal Saline) 500 mls @ 999 mls/hr IV .Bolus ONE Stop: 04/07/17 15:27 Last Admin: 04/07/17 15:36 Dose: 999 mls/hr Sodium Chloride (Normal Saline) 1,000 mls @ 999 mls/hr IV .Bolus ONE Stop: 04/07/17 18:14 Last Admin: 04/07/17 17:23 Dose: 999 mls/hr Sodium Chloride (Normal Saline) 1,000 mls @ 75 mls/hr IV ASDIRECTED [facility] Last Admin: 04/09/17 00:46 Dose: 75 mls/hr Magnesium Sulfate 4 gm/ Premix 100 mls @ 50 mls/hr IV ONETIME ONE Stop: 04/09/17 09:49 Last Admin: 04/09/17 08:15 Dose: 50 mls/hr Methotrexate (Methotrexate) 15 mg PO We@0900 [facility] Last Admin: 04/07/17 20:57 Dose: 15 mg Metoprolol Tartrate (Lopressor) 50 mg PO BID [facility] Last Admin: 04/09/17 10:04 Dose: 50 mg Morphine Sulfate (Morphine) 2 mg IVPUSH ONETIME ONE Stop: 04/07/17 15:51 Last Admin: 04/07/17 15:57 Dose: 2 mg Morphine Sulfate (Morphine) 2 mg IVPUSH Q2H PRN PRN Reason: Pain (severe 7-10) Stop: 04/08/17 18:31 Moxifloxacin HCl (Vigamox 0.5% Ophth Soln) 0 ml EYELF DAILY [facility] Last Admin: 04/09/17 10:05 Dose: 1 drop Ondansetron HCl (Zofran) 4 mg IVPUSH ONETIME ONE Stop: 04/07/17 15:51 Last Admin: 04/07/17 15:57 Dose: 4 mg [facility] Admin: 04/09/17 07:12 Dose: 40 mg Patient's Own MedicationSystane Ophth Gel 0 each EYEBOTH BID [facility] Last Admin: 04/09/17 10:05 Dose: 1 each Patient's Own MedicationSystane Eye Drops 0 each EYEBOTH BID [facility] Last Admin: 04/09/17 10:05 Dose: 1 each Polyethylene Glycol (Miralax) 17 gm PO DAILY PRN PRN Reason: Constipation Prednisone (Prednisone) 10 mg PO DAILY [facility] Prednisone (Prednisone) 10 mg PO DAILY [facility] Prednisone (Prednisone) 20 mg PO DAILY [facility] Stop: 04/09/17 09:01 Last Admin: 04/09/17 10:05 Dose: 20 mg - Exam Quality Assessment: Reports: DVT prophylaxis General: Reports: alert, oriented, cooperative, no acute distress HEENT: Reports: Pupils equal, Pupils reactive, EOMI, Mucous membr. moist/pink Neck: Reports: supple Lungs: Reports: Clear to auscultation, Normal respiratory effort Cardiovascular: Reports: Regular Rate, Regular Rhythm Abdomen: Reports: bowel sounds present, soft, no tenderness, no distension Back Exam: Reports: Normal Inspection, Full Range of Motion Extremities: Reports: no edema, normal pulses Skin: Reports: warm, dry, intact Wound/Incisions: Reports: healing well Neurological: Reports: no new focal deficit Psy/Mental Status: Reports: alert, normal affect, normal mood *Q Meaningful Use (DIS) - VTE *Q VTE Criteria *Q: - Stroke *Q Stroke Criteria *Q: - AMI *Q AMI Criteria *Q:
== END 2017-04-09 13:30 ==
LOC: MW.ED 14:54 → MW.MS 17:56
PROVIDERS: ADMIT Internal Medicine; ATTEND Internal Medicine
DX: R53.1 Weakness (principal); M25.511 Pain in right shoulder; R29.6 Repeated falls; D64.9 Anemia, unspecified; E83.51 Hypocalcemia; R09.89 Other specified symptoms and signs involving the circulatory and respiratory systems; I51.7 Cardiomegaly; K44.9 Diaphragmatic hernia without obstruction or gangrene; K22.8 Other specified diseases of esophagus; H26.9 Unspecified cataract; I48.0 Paroxysmal atrial fibrillation; I50.9 Heart failure, unspecified; K21.9 Gastro-esophageal reflux disease without esophagitis; M06.9 Rheumatoid arthritis, unspecified; M35.00 Sjogren syndrome, unspecified; M53.3 Sacrococcygeal disorders, not elsewhere classified; K92.1 Melena; K57.10 Diverticulosis of small intestine without perforation or abscess without bleeding; Z87.11 Personal history of peptic ulcer disease; Z87.01 Personal history of pneumonia (recurrent); Z87.440 Personal history of urinary (tract) infections; Z90.710 Acquired absence of both cervix and uterus; Z98.890 Other specified postprocedural states; Z79.899 Other long term (current) drug therapy; Z82.49 Family history of ischemic heart disease and other diseases of the circulatory system
CPT/HCPCS: 36415; 36430; 51703; 71010; 72170; 73060; 74241; 80053; 81001; 82550; 82607; 82728; 83550; 83735; 84100; 84484; 85025; 86850; 86900; 86901; 86920; 86921; 86922; 93005; 96361; 96365; 96366; 96375; 97110; 97161; 97802; 99285; A9270; G0378; J1940; J2270; J2405; J3475; J7040; J8610; P9016; 36410; 96374

== ENCOUNTER 2017-04-11 13:00 | Observation (INO) | payer MEDICARE, OTHER ==
--- NOTE | 2017-04-11 13:20 | EDM.PDOC ---
[id number] 4d HARD TIME BREATHING Time Seen by Provider: 04/11/17 13:07 Source of Information: Reports: Family History Limitations: Reports: No Limitations - History of Present Illness INITIAL COMMENTS - FREE TEXT/NARRATIVE: History of present illness: [] She was transferred to the ED from [place] with complaints of shortness of breath, refusing to eat and change in behavior. Patient is seen in the ED 4 days ago and was admitted for anemia and transfused. Discharge to [place] stable. Daughter notes that last night when she saw her she was at her baseline. Today at noon and noted she was not speaking or following commands. 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 Patient was breathing on her own and consciousness at all times. Review of systems: As per history of present illness and below otherwise all systems reviewed and negative. Past medical history: As per history of present illness and as reviewed below otherwise noncontributory. Surgical history: As per history of present illness and as reviewed below otherwise noncontributory. Social history: No reported history of drug or alcohol abuse. Family history: As per history of present illness and as reviewed below otherwise noncontributory. Physical exam: General: Well developed, well nourished in NAD HEENT: Atraumatic, normocephalic, pupils reactive, negative for conjunctival pallor or scleral icterus, mucous membranes moist, throat clear, neck supple, nontender, trachea midline. Lungs: Clear to auscultation, breath sounds equal bilaterally, chest nontender. Heart: S1S2, regular, negative for clicks, rubs, or JVD. Abdomen: Soft, nondistended, nontender. Negative for masses or hepatosplenomegaly. Negative for costovertebral tenderness. Pelvis: Stable nontender. Genitourinary: Deferred. Rectal: Deferred. Extremities: Atraumatic, negative for cords or calf pain. Neurovascular unremarkable. Neuro: Awake, alert, oriented. Cranial nerves II through XII unremarkable. Cerebellum unremarkable. Motor and sensory unremarkable throughout. Exam nonfocal. Diagnostics: []Labs and CT head were done, CT shows no acute changes show potassium elevated at 6.4, EKG is essentially unchanged Therapeutics: [] Impression: []Decreased mental status, hyperkalemia Plan: []Admitted for Kayexalate, repeat potassium and observation Definitive disposition and diagnosis as appropriate pending reevaluation and review of above. - Related Data Allergies Allergy/AdvReac Type Severity Reaction Status Date / Time Penicillins Allergy Hives Verified 04/11/17 13:19 Home Meds: Home Meds Amiodarone [Cordarone] 200 mg PO BID 04/07/17 [History] Citalopram [Celexa] 10 mg PO BEDTIME 04/07/17 [History] Dexamethasone Sod Phosphate [Dexamethasone Sodium Phosphate] 1 drop EYEBOTH BID 04/07/17 [History] Folic Acid 3 tab PO DAILY 04/07/17 [History] Furosemide 80 mg PO DAILY 04/07/17 [History] Hypromellose [Systane Gel] 1 applic EYEBOTH BID 04/07/17 [History] Methotrexate 6 tab PO WEEKLY 04/07/17 [History] Metoprolol Tartrate 1 tab PO BID 04/07/17 [History] Moxifloxacin [Vigamox 0.5% Ophth Soln] 1 drop EYELF DAILY 04/07/17 [History] Pantoprazole [ProTONIX] 40 mg PO BIDAC 04/07/17 [History] Potassium Chloride [K-Tab ER] 1 tab PO BID 04/07/17 [History] Prednisone [IJP: Prednisone] 1 tab PO DAILY 04/07/17 [History] Propylene Glycol/Peg 400 [Systane 0.3-0.4% Eye Drops] 1 drop EYEBOTH BID [History] Acetaminophen/HYDROcodone [Cooks 325-5 MG] 1 tab PO Q6HR PRN 04/11/17 [History] Past Medical History HEENT History: Reports: Cataract, Impaired Vision (lots of eye surgeries), Other (See Below) Cardiovascular History: Reports: Afib (paroxysmal) Other Cardiovascular History: Congestive heart failure. 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: Musculoskeletal History: Reports: Connective Tissue Disease, RA, Other (See Below) (Raynaud's, Sjogren's) Neurological History: Reports: None, Neuropathy, Diabetic Psychiatric History: Reports: None Endocrine/Metabolic History: Reports: None Hematologic History: Reports: None Immunologic History: Reports: None Oncologic (Cancer) History: Reports: None Dermatologic History: Reports: None - Infectious Disease History Infectious Disease History: Reports: Chicken Pox, Measles, Mumps - Past Surgical History HEENT Surgical History: Reports: Other (See Below) Other HEENT Surgeries/Procedures: Cornea transplants Cardiovascular Surgical History: Reports: None Female Surgical History: Reports: Hysterectomy Social & Family History - Family History Family Medical History: Noncontributory Cardiac: Reports: Hypertension, Other (See Below) Other Cardiac Family History: Congestive heart failure Respiratory: Reports: None GI: Reports: None : Reports: UTI, Recurrent OBGYN: Reports: Musculoskeletal: Reports: Arthritis Neurological: Reports: None Psychiatric: Reports: Anxiety, Depression Endocrine/Metabolic: Reports: Diabetes, Type I Hematologic: Reports: None Immunologic: Reports: None Dermatologic: Reports: None Oncologic: Reports: None - Tobacco Use Smoking Status *Q: Never Smoker Years of Tobacco use: 25 Used Tobacco, but Quit: Yes Month Tobacco Last Used: 2010 Second Hand Smoke Exposure: No - Caffeine Use Caffeine Use: Reports: Coffee Caffeine Use Comment: 3 cups/day - Alcohol Use Days Per Week of Alcohol Use: 0 - Recreational Drug Use Recreational Drug Use: No - Living Situation & Occupation Living situation: Reports: , Alone ED ROS GENERAL - Review of Systems Review Of Systems: See Below (see history of present illness) ED EXAM, GENERAL - Physical Exam Exam: See Below (See history of present illness) Course - Vital Signs Last Recorded V/S: Last Vital Signs Temp 36.1 C 04/11/17 13:19 Pulse 89 04/11/17 13:19 Resp 20 04/11/17 13:19 BP 116/59 L 04/11/17 13:19 Pulse Ox 95 04/11/17 13:19 - Orders/Labs/Meds Orders: Active Orders 24 hr Category Date Time Status Admission Diagnosis [ADT] Routine ADT 04/11/17 15:09 Ordered Patient Status [ADT] Stat ADT 04/11/17 15:10 Active EKG Documentation Completion [RC] STAT Care 04/11/17 14:35 Active RT Aerosol Therapy [RC] ASDIRECTED Care 04/11/17 13:23 Active Chest 1V Frontal [CR] Stat Exams 04/11/17 13:21 Taken Head wo Cont [CT] Stat Exams 04/11/17 13:22 Taken Labs: Laboratory Tests 04/11/17 04/11/17 04/11/17 Range/Units 13:10 13:34 13:44 WBC 7.59 (4.0-11.0) K/uL RBC 4.18 L (4.30-5.90) M/uL Hgb 13.5 (12.0-16.0) g/dL Hct 42.6 (36.0-46.0) % MCV 101.9 H (80.0-98.0) fL MCH 32.3 H (27.0-32.0) pg MCHC 31.7 (31.0-37.0) g/dL RDW Std Deviation 67.8 H (28.0-62.0) fl RDW Coeff of Princess 19 H (11.0-15.0) % Plt Count 89 L (150-400) K/uL Add Manual Diff YES Neutrophils % (Manual) 40 L (48.0-80.0) % Band Neutrophils % 40 % Lymphocytes % (Manual) 6 L (16.0-40.0) % Monocytes % (Manual) 14 (0.0-15.0) % Nucleated RBC % 0.8 /100WBC Absolute Seg Neuts 3.0 Band Neutrophils # 3.0 Lymphocytes # (Manual) 0.5 Monocytes # (Manual) 1.1 Nucleated RBCs # 0 K/uL Sodium (136-146) mmol/L Potassium (3.5-5.1) mmol/L Chloride (98-110) mmol/L Carbon Dioxide (21-31) mmol/L BUN (6.0-23.0) mg/dL Creatinine (0.6-1.5) mg/dL Est Cr Clr Drug Dosing Estimated GFR (MDRD) ml/min Glucose (60-110) mg/dL POC Glucose 63 (60-110) mg/dL Calcium (8.8-10.8) mg/dL Urine Color YELLOW Urine Appearance CLEAR Urine pH 5.0 (5.0-8.0) Ur Specific [place] 1.015 (1.001-1.035) Urine Protein NEGATIVE (NEGATIVE) mg/dL Urine Glucose (UA) NEGATIVE (NEGATIVE) mg/dL Urine Ketones NEGATIVE (NEGATIVE) mg/dL Urine Occult Blood NEGATIVE (NEGATIVE) Urine Nitrite NEGATIVE (NEGATIVE) Urine Bilirubin SMALL H (NEGATIVE) Urine Ictotest NEGATIVE Urine Urobilinogen 4.0 H (<2.0) EU/dL Ur Leukocyte Esterase TRACE (NEGATIVE) Urine RBC 1-3 (0-2/HPF) Urine WBC 15-20 (0-5/HPF) Ur Epithelial Cells RARE (NONE-FEW) Urine Bacteria 1+ H (NEGATIVE) 04/11/17 Range/Units 13:44 WBC (4.0-11.0) K/uL RBC (4.30-5.90) M/uL Hgb (12.0-16.0) g/dL Hct (36.0-46.0) % MCV (80.0-98.0) fL MCH (27.0-32.0) pg MCHC (31.0-37.0) g/dL RDW Std Deviation (28.0-62.0) fl RDW Coeff of Princess (11.0-15.0) % Plt Count (150-400) K/uL Add Manual Diff Neutrophils % (Manual) (48.0-80.0) % Band Neutrophils % % Lymphocytes % (Manual) (16.0-40.0) % Monocytes % (Manual) (0.0-15.0) % Nucleated RBC % /100WBC Absolute Seg Neuts Band Neutrophils # Lymphocytes # (Manual) Monocytes # (Manual) Nucleated RBCs # K/uL Sodium 136 (136-146) mmol/L Potassium 6.4 H (3.5-5.1) mmol/L Chloride 107 (98-110) mmol/L Carbon Dioxide 14 L (21-31) mmol/L BUN 42 H (6.0-23.0) mg/dL Creatinine 2.2 H (0.6-1.5) mg/dL Est Cr Clr Drug Dosing TNP Estimated GFR (MDRD) 21.6 ml/min Glucose 67 (60-110) mg/dL POC Glucose (60-110) mg/dL Calcium 8.0 L (8.8-10.8) mg/dL Urine Color Urine Appearance Urine pH (5.0-8.0) Ur Specific [place] (1.001-1.035) Urine Protein (NEGATIVE) mg/dL Urine Glucose (UA) (NEGATIVE) mg/dL Urine Ketones (NEGATIVE) mg/dL Urine Occult Blood (NEGATIVE) Urine Nitrite (NEGATIVE) Urine Bilirubin (NEGATIVE) Urine Ictotest Urine Urobilinogen (<2.0) EU/dL Ur Leukocyte Esterase (NEGATIVE) Urine RBC (0-2/HPF) Urine WBC (0-5/HPF) Ur Epithelial Cells (NONE-FEW) Urine Bacteria (NEGATIVE) Meds: Medications Discontinued Medications Generic Name Dose Route Start Last Admin Trade Name Martinezq PRN Reason Stop Dose Admin Albuterol/Ipratropium 3 ml 04/11/17 13:23 04/11/17 13:39 Duoneb 3.0-0.5 Mg/3 Ml NEB 04/11/17 13:24 3 ml ONETIME ONE Administration Departure - Departure Time of Disposition: 16:16 Disposition: Admitted As Inpatient 66 Condition: poor Clinical Impression: Mental status, decreased, Hyperkalemia - Discharge Information - My Orders Last 24 Hours: My Active Orders 04/11/17 13:21 Chest 1V Frontal [CR] Stat 04/11/17 13:22 Head wo Cont [CT] Stat 04/11/17 13:23 RT Aerosol Therapy [RC] ASDIRECTED 04/11/17 14:35 EKG Documentation Completion [RC] STAT 04/11/17 15:09 Admission Diagnosis [ADT] Routine 04/11/17 15:10 Patient Status [ADT] Stat - Assessment/Plan Last 24 Hours: My Active Orders 04/11/17 13:21 Chest 1V Frontal [CR] Stat 04/11/17 13:22 Head wo Cont [CT] Stat 04/11/17 13:23 RT Aerosol Therapy [RC] ASDIRECTED 04/11/17 14:35 EKG Documentation Completion [RC] STAT 04/11/17 15:09 Admission Diagnosis [ADT] Routine 04/11/17 15:10 Patient Status [ADT] Stat
[2017-04-11] MEDS ORDERED: Albuterol/Ipratropium 3.0-0.5 MG/3 ML Neb Soln NEB ONE (13:23)
[2017-04-11 14:21] LABS: CHLORIDE,CL 107 mmol/L (98-110); SODIUM,NA 136 mmol/L (136-146)
[2017-04-11] MEDS ORDERED: Insulin Regular, Human 100 Units/ML 10 ML Vial ONE (18:43)
[2017-04-11] MEDS ORDERED: Midazolam 1 MG/ML 2 ML SDV IVPUSH ONE (18:52)
[2017-04-11] MEDS ORDERED: Midazolam 1 MG/ML 2 ML SDV ONE ×2 (18:52→19:26)
[2017-04-11] MEDS ORDERED: Levofloxacin/Dextrose 5%-Water 750 MG in Premix Bag 1 BAG IV ONE (19:07)
[2017-04-11] MEDS ORDERED: Midazolam 5 MG/ML SDV ONE (19:12)
[2017-04-11] MEDS ORDERED: Midazolam 50 MG in Sodium Chloride 0.9% 90 ML IV SCH (19:15)
[2017-04-11] MEDS ORDERED: Norepinephrine 4 MG in Dextrose 5% in Water 246 ML IV SCH ×2 (19:45)
[2017-04-11 19:47] LABS: CHLORIDE,CL 109 mmol/L (98-110); SODIUM,NA 137 mmol/L (136-146)
[2017-04-11] MEDS ORDERED: Norepinephrine Bit/0.9 % NaCl 4 MG in Premix Bag 1 BAG IV SCH (20:00)
[2017-04-11] MEDS ORDERED: 50% Dextrose in Water 50 ML Syringe IVPUSH ONE ×2 (20:04→20:05)
[2017-04-11] MEDS ORDERED: Insulin Regular, Human 100 Units/ML 10 ML Vial IVPUSH ONE ×2 (20:04→20:05)
--- NOTE | 2017-04-11 20:31 | PCM.SN ---
- Free Text/Narrative Note: Called for "code response" emergency. On arrival from home, this patient was intubated being hand /bag ventilated with HR 78, BP120/64 and RT stated she was breathing on her own. She had been in V.Tach and had been cardioverted. No peripheral access was available and hospitalist requested a central access be provided. Sterile access to Right Subclavian was done with technical difficulty after passage of the 3-lumen catheter. CXR revealed distal catheter to be cephalad. I pulled this cath back to 8-10 cm and infusion was begun via distal port while prepatation for a left subclavian access was set up. This was done under sterile conditions with ready access and immediate return of venous blood via all three ports. CXR confirmed this so all three ports were then stated to be available for use....which occurred immediately. Continued care under the direction of the hospitalist and intensive care staff. See attendant x-rays all wet read by me with show to Dr. Desai. 1855 - 2030hrs.
--- NOTE | 2017-04-11 20:54 | PCM.HP ---
H&P History of Present Illness - History of Present Illness Initial Comments - Free Text/Narative: 77 yo female with pmh of hypertensive cardiomyopathy, atrial fibrillation on amiodarone, HTN and RA. She was recently admitted from 04/07/10 to 04/10/10 due to frequent falls and generalized weakness. She was transfused one unit pRBC for suspect chronic GI bleed. She was discharged back to [place]. Today she was brought in due to lethargy. Her labs were significant for increase in creatinine to 2.2 from 0.8 on 04/09/17. Her WBC was 7.52 Hgb of 12.3 and potassium of 6.5. CT head was negative and CXR reported improved pulmonary vascular congestion from prior admission. Shortly after admission she became unresponsive, tachycardic, and hypotensive with telemetry showing what is likely atrial fibrillation with aberrancy vs. ventricular tachycardia. Family was in room and requested full code. Code was called and patient was shocked but was unsuccessful in cardioversion. Calcium was given and patient converted to narrow complex rhythm. She was intubated due to mental status and shallow breathing but patient was able to maintain O2 sats prior to intubation. Patient never lost pulse. Central line was placed and patient was given bolus of NS and levophed was started. She was given a dose of levaquin and vancomycin. She was given amp of D50 plus 10 units of insulin during code which was repeated when repeat labs showed a potassium of 6.5. Family has requested transfer to [place]. I called Dr. Pearson who has accepted the patient. Air transport has been arranged. - Related Data Allergies/Adverse Reactions: Allergies Allergy/AdvReac Type Severity Reaction Status Date / Time Penicillins Allergy Hives Verified 04/11/17 13:19 Home Medications: Home Meds Amiodarone [Cordarone] 200 mg PO BID 04/07/17 [History] Citalopram [Celexa] 10 mg PO BEDTIME 04/07/17 [History] Dexamethasone Sod Phosphate [Dexamethasone Sodium Phosphate] 1 drop EYEBOTH BID 04/07/17 [History] Folic Acid 3 tab PO DAILY 04/07/17 [History] Furosemide 80 mg PO DAILY 04/07/17 [History] Hypromellose [Systane Gel] 1 applic EYEBOTH BID 04/07/17 [History] Methotrexate 6 tab PO WEEKLY 04/07/17 [History] Metoprolol Tartrate 1 tab PO BID 04/07/17 [History] Moxifloxacin [Vigamox 0.5% Ophth Soln] 1 drop EYELF DAILY 04/07/17 [History] Pantoprazole [ProTONIX] 40 mg PO BIDAC 04/07/17 [History] Potassium Chloride [K-Tab ER] 1 tab PO BID 04/07/17 [History] Prednisone [IJP: Prednisone] 1 tab PO DAILY 04/07/17 [History] Propylene Glycol/Peg 400 [Systane 0.3-0.4% Eye Drops] 1 drop EYEBOTH BID [History] Acetaminophen/HYDROcodone [Bartlett 325-5 MG] 1 tab PO Q6HR PRN 04/11/17 [History] Past Medical History HEENT History: Reports: Cataract, Impaired Vision (lots of eye surgeries), Other (See Below) Cardiovascular History: Reports: Afib (paroxysmal) Other Cardiovascular History: Congestive heart failure. 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: Musculoskeletal History: Reports: Connective Tissue Disease, RA, Other (See Below) (Raynaud's, Sjogren's) Neurological History: Reports: None, Neuropathy, Diabetic Psychiatric History: Reports: None Endocrine/Metabolic History: Reports: None Hematologic History: Reports: None Immunologic History: Reports: None Oncologic (Cancer) History: Reports: None Dermatologic History: Reports: None - Infectious Disease History Infectious Disease History: Reports: Chicken Pox, Measles, Mumps - Past Surgical History HEENT Surgical History: Reports: Other (See Below) Other HEENT Surgeries/Procedures: Cornea transplants Cardiovascular Surgical History: Reports: None Female Surgical History: Reports: Hysterectomy Social & Family History - Family History Family Medical History: Noncontributory Cardiac: Reports: Hypertension, Other (See Below) Other Cardiac Family History: Congestive heart failure Respiratory: Reports: None GI: Reports: None : Reports: UTI, Recurrent OBGYN: Reports: Musculoskeletal: Reports: Arthritis Neurological: Reports: None Psychiatric: Reports: Anxiety, Depression Endocrine/Metabolic: Reports: Diabetes, Type I Hematologic: Reports: None Immunologic: Reports: None Dermatologic: Reports: None Oncologic: Reports: None - Tobacco Use Smoking Status *Q: Never Smoker Years of Tobacco use: 25 Used Tobacco, but Quit: Yes Month Tobacco Last Used: 2010 Second Hand Smoke Exposure: No - Caffeine Use Caffeine Use: Reports: Coffee Caffeine Use Comment: 3 cups/day - Alcohol Use Days Per Week of Alcohol Use: 0 - Recreational Drug Use Recreational Drug Use: No - Living Situation & Occupation Living situation: Reports: , Alone H&P Review of Systems - Review of Systems: Review Of Systems: Unable To Obtain Exam - Exam Exam: See Below - Vital Signs Vital Signs: Last Vital Signs Temp 36.1 C 04/11/17 13:19 Pulse 80 04/11/17 17:15 Resp 20 04/11/17 13:19 BP 121/50 L 04/11/17 17:15 Pulse Ox 95 04/11/17 17:15 Weight: 67 kg - Exam General: Sedated Neck: No: JVD Lungs: Clear to Auscultation Cardiovascular: Tachycardia. No: Systolic Murmur, Diastolic Murmur Abdomen: Normal Bowel Sounds, Soft Extremities: Edema (+1 edema) - Patient Data Lab Results last 24 hrs: Laboratory Results - last 24 hr 04/11/17 04/11/17 Range/Units 19:18 19:18 Sodium 137 (136-146) mmol/L Potassium 6.5 H (3.5-5.1) mmol/L Chloride 109 (98-110) mmol/L Carbon Dioxide 14 L (21-31) mmol/L BUN 50 H (6.0-23.0) mg/dL Creatinine 2.7 H (0.6-1.5) mg/dL Est Cr Clr Drug Dosing TNP Estimated GFR (MDRD) 17.1 ml/min Glucose 113 H (60-110) mg/dL Calcium 9.6 (8.8-10.8) mg/dL Magnesium 1.8 (1.5-2.3) mEq/L Total Bilirubin 2.3 H (0.1-1.5) mg/dL AST 708 H (5-40) IU/L ALT 214 H (8-54) IU/L Alkaline Phosphatase 138 (40-150) Total Protein 4.3 L (6.0-8.0) g/dL Albumin 2.0 L (3.4-4.8) g/dL Globulin 2.3 (2.0-3.5) g/dL Albumin/Globulin Ratio 0.9 L (1.3-2.8) Result Diagrams: 04/11/17 13:44 04/11/17 19:18 *Q Meaningful Use (ADM) - VTE *Q VTE Criteria *Q: - Stroke *Q Stroke Criteria *Q: - AMI *Q AMI Criteria *Q: Problem List Initiated/Reviewed/Updated: Yes Orders Last 24hrs: Active Orders 24 hr Category Date Time Status EKG 12 Lead [EKG Documentation Completion] [RC] ROUTINE Care 04/11/17 19:32 Active Telemetry Monitoring [Cardiac Monitoring] [RC] . Care 04/11/17 17:01 Active DIRECTED CXR [Chest 1V Frontal] [CR] Routine Exams 04/11/17 19:31 Taken CXR [Chest 1V Frontal] [CR] Routine Exams 04/11/17 19:56 Ordered Chest 1V Frontal [CR] Stat Exams 04/11/17 Taken ABG [BLOOD GAS ARTERIAL] [BG] Routine Lab 04/11/17 19:16 Ordered CULTURE BLOOD [BC] Stat Lab 04/11/17 20:51 Ordered CULTURE BLOOD [BC] Stat Lab 04/11/17 20:51 Ordered VANCOMYCIN TROUGH [CHEM] Timed Lab 04/16/17 20:00 Ordered Midazolam [Versed 5 MG/ML] 50 mg Med 04/11/17 19:15 Active Sodium Chloride 0.9% [Normal Saline] 90 ml IV TITRATE Norepinephrine Bit/0.9 % NaCl [Norepinephr-0.9% NaCl 4 Med 04/11/17 20:00 Active mg/250] 4 mg Premix Bag 1 bag IV TITRATE Vancomycin Pharmacy to Dose [Pharmacy to Dose - Med 04/11/17 19:07 Pending Vancomycin] 1 dose .XX ONETIME ONE Vancomycin [Vancocin] 1 gm Med 04/11/17 21:00 Active Sodium Chloride 0.9% [Normal Saline] 250 ml IV Q24H Blood Culture x2 Reflex Set [OM.PC] Stat Oth 04/11/17 20:51 Ordered Medication Orders Midazolam HCl 50 mg/ Sodium (Chloride) 100 mls @ 1 mls/hr IV TITRATE BEST; 0.5 MG/HR PRN Reason: Protocol Vancomycin HCl 1 gm/ Sodium (Chloride) 250 mls @ 166 mls/hr IV Q24H BEST Last Admin: 04/11/17 20:00 Dose: 166 mls/hr Norepinephrine Bitartrate 4 mg (/ Premix) 250 mls @ 7.5 mls/hr IV TITRATE BEST; 2 MCG/MIN PRN Reason: Protocol Vancomycin HCl (Pharmacy To Dose - Vancomycin) 1 dose .XX ONETIME ONE Stop: 04/11/17 19:08
[2017-04-11 21:59] VITALS: BP 134/38
--- NOTE | 2017-04-12 11:28 | CR ---
EXAM DATE: 04/11/17 PATIENT'S AGE: 77 Patient: CASSI CARPENTER Facility: [place], [place] Site . Site : 1940 Study: XRay Chest [id number]/2017 2:27:11 PM Ordering Physician: [place] Final Report: HISTORY: Shortness of breath. Technique: Portable AP upright chest. Comparison: 04/07/2017. Findings: Median sternotomy wires are present. There is cardiomegaly with left ventricular enlargement. Pulmonary vessels are at the upper limits of normal. No confluent infiltrate is seen. There is minimal blunting of the costophrenic angles. Impression: There has been a decrease in pulmonary congestion since 04/07/2017. Mild cardiomegaly and borderline pulmonary vascular redistribution are present. There is minimal pleural fluid. Dictated by Cornell Brian MD @ Apr 11 2017 2:49PM (Electronic Signature) Report Signed by Proxy. [facility] HOSPITALSimón
--- NOTE | 2017-04-12 11:29 | CT ---
EXAM DATE: 04/11/17 PATIENT'S AGE: 77 Patient: CASSI CARPENTER Facility: [place], [place] Site . Site : 1940 Study: CT Head [id number]/11/2017 2:27:45 PM Ordering Physician: [place] Final Report: INDICATION: Drowsiness. Technique: CT scan of the brain without contrast. Comparison: CT scan of the brain. 06/17/2015. Findings: There is a stable previous right parietal craniotomy. There has been interval evacuation of a previous left hemisphere subdural. No new intra or extra-axial hemorrhage. Stable moderate prominent decreased attenuation, which is symmetric in the periventricular white matter. Stable appearance of prominent ventricles and sulci, possibly slight interval increase in overall volume loss since previous exam. No new abnormality of the bony calvarium. No intracranial mass. IMPRESSION: 1. Previous evacuation of left hemisphere subdural. 2. No new hemorrhage or acute intracranial radiographic abnormality. 3. Slight progression of cerebral volume loss. Mild small vessel diffuse ischemic changes in the white matter. 4. Mild atherosclerotic intracranial vascular calcifications. Please note that all CT scans at this facility use dose modulation, iterative reconstruction, and/or weight-based dosing when appropriate to reduce radiation dose to as low as reasonably achievable. Dictated by Estiven Madison MD @ Apr 11 2017 2:44PM (Electronic Signature) Report Signed [facility] Proxy. [facility]
--- NOTE | 2017-04-12 11:37 | CR ---
EXAM DATE: 04/11/17 PATIENT'S AGE: 77 Patient: CASSI CARPENTER Facility: [place], [place] Site . Site : 1940 Study: XRay Chest [id number]/11/2017 7:09:07 PM Ordering Physician: Lloyd Leal Final Report: CHEST 1 VIEW AP INDICATION: Endotracheal tube placement. COMPARISON: Portable exam same date. IMPRESSION: The tip of the endotracheal tube is projected 3 cm superior to the doreen. Stable heart size and vascular pattern. Lungs are clear of new focal opacities. No pneumothorax or pleural abnormality. Sternotomy. Dictated by Estiven Madison MD @ Apr 11 2017 7:21PM (Electronic Signature) Report Signed by Proxy. [facility]
--- NOTE | 2017-04-12 11:38 | CR ---
EXAM DATE: 04/11/17 PATIENT'S AGE: 77 Patient: CASSI CARPENTER Facility: [place], [place] Site . Site : 1940 Study: XRay Chest [id number]/11/2017 7:36:05 PM Ordering Physician: Lloyd Leal Final Report: INDICATION: Line placement. Technique: Portable chest. One view. IMPRESSION: Right subclavian placement. Central venous line tip enters the right internal jugular vein. The line courses retrograde and the tip is not visualized. Interval repositioning is suggested. No pneumothorax. Mild prominent basilar interstitial markings are slightly increased from previous. Possible small nodule in the left upper lobe. 11 millimeters. This is superimposed over the anterior 3rd rib, it is better identified on the current exam than on the previous examination. From the same date. Appears new since 05/2017. Consider followup. Stable appearance of the cardiac silhouette. Dictated by Estiven Madison MD @ Apr 11 2017 7:36PM (Electronic Signature) Report Signed by Proxy. [facility]
--- NOTE | 2017-04-12 11:40 | CR ---
EXAM DATE: 04/11/17 PATIENT'S AGE: 77 Patient: CASSI CARPENTER Facility: [place], [place] Site . Site : 1940 Study: XRay Chest [id number]/11/2017 8:06:48 PM Ordering Physician: Lloyd Leal Final Report: CHEST 1 VIEW AP INDICATION: Repositioning of right subclavian catheter. COMPARISON: Same day. 1930. IMPRESSION: Stable heart size and vascular pattern. Lungs are clear of new focal opacities. No pneumothorax or pleural abnormality. The previous right subclavian line has been pulled back. The line tip is now at the junction of the subclavian and the right internal jugular vein. No other significant change. Dictated by Estiven Madison MD @ Apr 11 2017 8:18PM (Electronic Signature) Report Signed by Proxy. [id number]
== END 2017-04-11 22:15 ==
LOC: MW.ED 13:00 → MW.MS 15:20 → MW.ICU 16:31
PROVIDERS: ADMIT Internal Medicine; ATTEND Internal Medicine
DX: I46.9 Cardiac arrest, cause unspecified (principal); R53.83 Other fatigue; H26.9 Unspecified cataract; I48.0 Paroxysmal atrial fibrillation; I50.9 Heart failure, unspecified; K21.9 Gastro-esophageal reflux disease without esophagitis; M06.9 Rheumatoid arthritis, unspecified; Z87.01 Personal history of pneumonia (recurrent); Z88.0 Allergy status to penicillin; Z79.52 Long term (current) use of systemic steroids; Z79.899 Other long term (current) drug therapy; Z90.710 Acquired absence of both cervix and uterus; Z98.890 Other specified postprocedural states; Z82.49 Family history of ischemic heart disease and other diseases of the circulatory system
CPT/HCPCS: 36415; 70450; 71010; 80048; 80053; 81001; 82962; 83735; 85025; 87040; 87077; 87186; 92950; 93005; 96365; 96375; 99285; G0378; J1815; J1956; J2250; J3370; J7050; J7060; 36556